=== PATIENT | female | born 1955 | race Caucasian/White ===

== ENCOUNTER → 2020-11-24 | Outpatient (CLI) | payer MEDICARE, OTHER ==
[~2020-11-24] MED LIST: CEFUROXIME500 MG PO; CLARITIN 10MG T10 MG PO; CLONAZEPAM1 MG PO; COREG 3.125M3.125 MG PO; COREG6.25 MG PO; CYCLOBENZAPRINE5 MG PO; CYMBALTA60 MG PO; DESYREL 50 MG T50 MG PO; DICLOFENAC SODI75 MG PO; ELIQUIS 2.5 MG2.5 MG PO; FLEXERIL 10 MG10 MG PO; LIPITOR TAB 2020 MG PO; LORTAB 5-325 M1 EACH PO; LORTAB 7.5-3251 EACH PO; NEURONTIN 300300 MG PO; NORCO 5-325 TA1 EACH PO; NORVASC 5 MG TAB5 MG PO; ONDANSETRON HCL4 MG PO; PERCOCET 10-321 EACH PO; PROTONIX40 MG PO; ROBITUSSIN DM U10 ML PO; VITAMIN B-121000 MC3 PO; ZOFRAN ODT 4 MG4 MG SL
== END ==
LOC: MRI 10-27 13:00
DX: M51.36 Other intervertebral disc degeneration, lumbar region (principal); M48.061 Spinal stenosis, lumbar region without neurogenic claudication; M47.816 Spondylosis without myelopathy or radiculopathy, lumbar region; M51.26 Other intervertebral disc displacement, lumbar region; M51.27 Other intervertebral disc displacement, lumbosacral region; M48.07 Spinal stenosis, lumbosacral region
CPT/HCPCS: 72148

== ENCOUNTER → 2021-12-10 | Outpatient (CLI) | payer MEDICARE, OTHER | LOC: RAD 14:17 | DX: M25.511 Pain in right shoulder (principal); M25.512 Pain in left shoulder | CPT/HCPCS: 73000 ==